=== PATIENT | female | born 1975 | race Hispanic/Latino ===

== ENCOUNTER → 2025-08-08 | Outpatient (CLI) | payer BC, OTHER ==
--- NOTE | 2025-08-08 23:38 | HMCIMG ---
EXAM: US ??? ARTERIAL DUPLEX STUDY, BILATERAL LOWER EXTREMITIES CLINICAL HISTORY: Peripheral vascular disease (PVD). TECHNIQUE: Real-time duplex ultrasound of the bilateral lower extremity arterial system performed using 2D grayscale imaging, color Doppler, and spectral waveform analysis to assess flow characteristics and detect stenosis or occlusion. COMPARISON: None provided. FINDINGS: On the right side, the common femoral artery demonstrates a peak systolic velocity of 144 cm/sec with a triphasic waveform, appearing normal. The superficial femoral artery shows proximal, mid, and distal velocities of 107 cm/sec, 119 cm/sec, and 99 cm/sec respectively, maintaining triphasic flow without focal stenosis. The popliteal artery shows proximal velocity of 61 cm/sec and distal velocity of 23 cm/sec with preserved triphasic pattern. The posterior tibial artery demonstrates a velocity of 83 cm/sec with a triphasic waveform. The anterior tibial artery shows distal velocity of 62 cm/sec with a [id number] waveform. The dorsalis pedis artery shows velocity of 67 cm/sec with triphasic waveform. No occlusion or hemodynamically significant stenosis is observed in the right lower extremity. On the left side, the common femoral artery demonstrates a peak systolic velocity of 130 cm/sec with a triphasic waveform. The superficial femoral artery shows proximal, mid, and distal velocities of 106 cm/sec, 93 cm/sec, and 75 cm/sec respectively, maintaining triphasic flow. The popliteal artery shows proximal and distal velocities of 59 cm/sec and 69 cm/sec with triphasic flow. The posterior tibial artery demonstrates a velocity of 65 cm/sec with triphasic waveform. The anterior tibial artery shows distal velocity of 56 cm/sec with biphasic waveform. The dorsalis pedis artery demonstrates velocity of 46 cm/sec with triphasic flow. No evidence of occlusion or focal stenosis is detected in the left lower extremity. Waveform morphology and velocities are within normal limits bilaterally, and there is no evidence of monophasic flow or velocity elevation suggestive of significant stenosis. IMPRESSION: * No flow-limiting stenosis or occlusion in either lower extremity arterial system. * Triphasic and biphasic waveforms preserved throughout, consistent with normal arterial perfusion bilaterally. * No evidence of hemodynamically significant peripheral arterial disease (PAD). /Grant
== END | disposition home or self-care (01) ==
LOC: RAH 12:17
PROVIDERS: ATTEND Family Medicine
DX: I73.9 Peripheral vascular disease, unspecified (principal)
CPT/HCPCS: 93925

== ENCOUNTER → 2025-09-04 | Outpatient (CLI) | payer BC, OTHER | END | disposition home or self-care (01) | LOC: RAH 09:15 | PROVIDERS: ATTEND Family Medicine | DX: Z12.31 Encounter for screening mammogram for malignant neoplasm of breast (principal) | CPT/HCPCS: 77067 ==